=== PATIENT | female | born 1950 | race Caucasian/White ===

== ENCOUNTER 2019-09-21 05:56 | Observation (INO) | payer MEDICARE ==
[2019-09-21] MEDS ORDERED: solu-MEDROL 125 MG IV ONE (06:16)
--- NOTE | 2019-09-21 06:16 | ERPHSYRPT ---
- History of Present Illness Source: patient Exam Limitations: clinical condition Timing/Duration: day(s) (3) Activities at Onset: none Severity of Dyspnea-Max: severe Severity of Dyspnea-Current: severe Possible Cause: frequent episodes Associated Symptoms: cough, wheezing, weakness Hx Influenza Vaccination/Date Given: Yes (2013) Hx Pneumococcal Vaccination/Date Given: No <ALF GARCIA - Last Filed: 09/21/19 06:26> <HUGO SIMPSON - Last Filed: 09/21/19 07:49> - History of Present Illness Time Seen by Provider: 09/21/19 06:26 Physician History: 68 YO F with hx of COPD presents with increase cough and SOA x 3 days. Pt on 2L at night at home. Has been using home nebulizer w/o benefit. 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 Denies any fever chills or sweats.had to increase O2 to 3 liters this AM. (ALF GARCIA) Allergies/Adverse Reactions: No Known Drug Allergies Allergy (Unverified 09/21/19 05:59) Home Medications: Albuterol 8 gm Mdi Hfa [Ventolin Hfa MDI] 8 gm IH Q4H PRN PRN 01/19/15 [ History] Benazepril HCl [Lotensin] 20 mg PO DAILY 01/19/15 [History] - Review of Systems Constitutional: No Fever, No Chills Eyes: No Symptoms Ears, Nose, & Throat: No Symptoms Respiratory: Cough, Dyspnea, Dyspnea on Exertion (RILEY), Wheezing Cardiac: No Chest Pain, No Edema, No Syncope Abdominal/Gastrointestinal: No Abdominal Pain, No Nausea, No Vomiting, No Diarrhea Genitourinary Symptoms: No Dysuria Musculoskeletal: No Back Pain, No Neck Pain Skin: No Rash Neurological: No Dizziness, No Focal Weakness, No Sensory Changes Psychological: No Symptoms Endocrine: No Symptoms All Other Systems: Reviewed and Negative <ALF GARCIA - Last Filed: 09/21/19 06:26> - Past Medical History Pertinent Past Medical History: Yes Neurological History: No Pertinent History ENT History: Macular Degeneration Cardiac History: No Pertinent History Respiratory History: COPD Endocrine Medical History: No Pertinent History Musculoskeletal History: Arthritis, Rheumatoid Arthritis GI Medical History: Other History: No Pertinent History Psycho-Social History: Anxiety Female Reproductive Disorders: No Pertinent History Other Medical History: Salmonella - Past Surgical History Past Surgical History: Yes Neuro Surgical History: No Pertinent History Cardiac: No Pertinent History Respiratory: No Pertinent History Gastrointestinal: No Pertinent History Genitourinary: No Pertinent History Musculoskeletal: No Pertinent History Female Surgical History: Section, Other Other Surgical History: Breast biopsy years ago. - Social History Smoking Status: Current every day smoker How long have you smoked: 20 years Exposure to second hand smoke: Yes Drug Use: none <SPENSERALF PORTILLO Mckenzie Filed: 09/21/19 06:26> - Physical Exam General Appearance: no apparent distress, moderate distress, alert Eye Exam: PERRL/EOMI Neck Exam: normal inspection, supple Respiratory Exam: respiratory distress, rhonchi, wheezing Cardiovascular/Chest Exam: normal heart sounds, regular rate/rhythm Abdominal/Gastrointestinal Exam: soft, No tenderness, No distention, No mass Extremity Exam: non-tender, normal range of motion, normal inspection, no calf tenderness, no pedal edema Peripheral Pulses Exam: carotid (R): 2+, carotid (L): 2+ Neurologic Exam: alert, oriented x 3, cooperative, communications scientist II-XII nml as tested, sensation nml, No motor deficits Skin Exam: normal color, warm, No dry SpO2 Interpretation: normal SpO2: 97 O2 Delivery: Nasal Cannula (3 L) <SEPNSERBANDARALF Mckenzie Filed: 09/21/19 06:26> - Nursing Vital Signs Nursing Vital Signs: Initial Vital Signs Temperature 97.9 F 09/21/19 05:57 Pulse Rate 114 H 09/21/19 05:57 Respiratory Rate 30 H 09/21/19 05:57 Blood Pressure 172/99 09/21/19 05:57 O2 Sat by Pulse Oximetry 99 09/21/19 05:57 Pain Scale Pain Intensity 0 - Course Nursing assessment & vital signs reviewed: Yes EKG Interpreted by Me: RATE (113), Sinus Tach, NORMAL AXIS, NORMAL INTERVALS, Non-specific ST Changes <FORESTALF Mckenzie Filed: 09/21/19 06:26> Ordered Tests: Active Orders 24 hr Category Date Time Status EKG-ER Only STAT Care 09/21/19 06:16 Active Oxygen-ED Only Nasal Cannula 3 lpm Care 09/21/19 06:16 Active CHEST 1 VIEW (PORTABLE) Stat Exams 09/21/19 06:17 Ordered BLOOD CULTURE Stat Lab 09/21/19 Ordered BLOOD CULTURE Stat Lab 09/21/19 06:17 Ordered CBC W DIFF Stat Lab 09/21/19 06:16 Ordered CMP Stat Lab 09/21/19 06:16 Ordered D-DIMER QUANTITATIVE Stat Lab 09/21/19 06:16 Ordered Ferritin Stat Lab 09/21/19 Ordered LDH-LACTATE DEHYDROGENASE Stat Lab 09/21/19 06:16 Ordered Lactic Acid Stat Lab 09/21/19 06:30 Completed MAGNESIUM Stat Lab 09/21/19 06:16 Ordered NT PRO BNP Stat Lab 09/21/19 06:16 Ordered PROTIME WITH INR Stat Lab 09/21/19 06:16 Ordered TROPONIN Q3H Lab 09/21/19 06:30 Ordered TROPONIN Q3H Lab 09/21/19 09:30 Ordered TROPONIN Q3H Lab 09/21/19 12:30 Ordered TROPONIN Q3H Lab 09/21/19 15:30 Ordered TROPONIN Q3H Lab 09/21/19 18:30 Ordered Medication Summary Generic Name Dose Route Start Last Admin Trade Name Freq PRN Reason Stop Dose Admin Sodium Chloride 1,000 mls @ 100 mls/hr 09/21/19 06:30 09/21/19 06:33 Sodium Chloride 0.9% 1000 Ml IV 10/21/19 06:29 100 mls/hr .Q10H CAMRYN Administration Discontinued Medications Generic Name Dose Route Start Last Admin Trade Name Freq PRN Reason Stop Dose Admin Albuterol Sulfate 8 gm 09/21/19 06:30 Ventolin Hfa Mdi IH 10/21/19 06:29 Q4H CAMRYN Albuterol Sulfate 4 puff 09/21/19 06:38 09/21/19 06:38 Ventolin Common Canister IH 09/21/19 06:39 4 puff STAT ONE Administration Methylprednisolone Sodium Succinate 125 mg 09/21/19 06:16 Solu-Medrol 125 Mg IV 09/21/19 06:17 STAT ONE Lab/Rad Data: Laboratory Results 09/21/19 Range/Units 06:30 Lactic Acid 1.0 (0.4-2.0) - Progress Blood Culture(s) Obtained: Yes <ALF GARCIA - Last Filed: 09/21/19 06:26> - Progress Progress: re-examined Air Movement: good Antibiotics given: Yes Discussed with : Other (Dr. Donna Vuong) Will see patient in: hospital (observation) Counseled pt/family regarding: lab results, diagnosis, need for follow-up, rad results <HUGO SIMPSON - Last Filed: 09/21/19 07:49> - Progress Progress Note: 09/21/19 06:54 pt was turned over from Dr. Garcia at change of shift this am as a PUI for Covid after discussion of pending studies and current findings re-exam, and introduction. 09/21/19 07:[address] Vuong and pt and all agree best to place pt in Covid unit with obs and begin ab as well as lovenox DVT dosing due also to elevated D- Dimer and forego CT PE scan at this time but just proceed to Tx. (HUGO SIMPSON) <ALF GARCIA - Last Filed: 09/21/19 06:26> - Departure Departure Disposition: Observation Critical Care Time: No <HUGO SIMPSON - Last Filed: 09/21/19 07:49> - Departure Clinical Impression: PUI for suspect Covid, COPD exacerbation and bilateral Pneumoni Condition: Good Referrals: ROBERT FERNANDES [Primary Care Provider] -
[2019-09-21] MEDS ORDERED: Ventolin Hfa MDI IH SCH (06:30)
[2019-09-21] MEDS: Sodium Chloride 0.9% 1000 ML 1,000 ML IV SCH ×2 (06:33→20:23)
[2019-09-21] MEDS ORDERED: VENTOLIN COMMON CANISTER IH ONE (06:38)
[2019-09-21 07:22] LABS: Hematocrit 48.7 % (35-47); Hemoglobin 15.8 gm/dl (12.0-16.0); INR 1.03 (0.8-3.0); Mean Cell Volume 97.8 fl (78-100); Mean Corpuscular Hemoglobin 31.7 pg (26-32); Mean Corpuscular Hgb Concent. 32.4 g/dl (32-36); Mean Platelet Volume 10.1 fl (7.5-11.0); PROTIME 11.6 SECONDS (9.95-12.35); Platelet Count 262 K/mm3 (150-450); Red Blood Count 4.98 M/mm3 (4.1-5.4); Red Cell Distribution Width 12.8 % (11.5-14.0); White Blood Count 12.6 K/mm3 (4.0-10.5)
[2019-09-21 07:47] LABS: Eosinophil 8 % (0.00-3.0); Lymphocytes 5 % (24-44); Monocyte 2 % (0.0-12.0); Neutrophils 85 % (36.0-66.0); Platelet Estimate NORMAL (NORMAL); Total Cells Counted 100
[2019-09-21 08:01] LABS: ALBUMIN 4.7 g/dL (3.5-5.0); ALKALINE PHOSPHATASE 108 U/L (38-126); ANION GAP 15.1 MEQ/L (5-15); BLOOD UREA NITROGEN 13 mg/dL (7-17); CHLORIDE 105 mmol/L (98-107); Calcium 10.1 mg/dL (8.4-10.2); Carbon Dioxide 24 mmol/L (22-30); Creatinine 1 0.56 mg/dL (0.52-1.04); Ferritin 435 ng/mL (11.1-264); Glucose 127 mg/dL (74-106); LDH-LACTATE DEHYDROGENASE 203 U/L (120-246); MAGNESIUM 2.2 mg/dL (1.6-2.3); NT PRO BNP 26.1 pg/mL (0-900); Potassium 4.4 mmol/L (3.5-5.1); SGOT/AST 30 U/L (14-36); SGPT/ALT 20 U/L (0-35); SODIUM 140 mmol/L (137-145); Total Protein 8.7 g/dL (6.3-8.2)
--- NOTE | 2019-09-21 08:06 | XRAY ---
Indication: Cough and short of breath. Suspect COVID 19. Comparison: October 02, 2017. Portable chest now demonstrates subtle lingula infiltrate/atelectasis. Remaining heart and lungs unremarkable. Bony thorax intact again with mild osteopenia and degenerative changes.
[2019-09-21 08:07] LABS: INFLUENZA A NEGATIVE (NEGATIVE); INFLUENZA B NEGATIVE (NEGATIVE); RESPIRATORY SYNCTIAL VIRUS NEGATIVE (Negative)
[2019-09-21] MEDS ORDERED: HUMULIN R SQ PRN ×2 (10:00)
[2019-09-21] MEDS ORDERED: Combivent Inhaler COMMON CANISTER IH SCH (10:00)
[2019-09-21] MEDS ORDERED: MORPHINE SULFATE 4 MG INJ IV PRN (10:00)
[2019-09-21] MEDS ORDERED: Zofran 4 MG/2 ML VIAL IV PRN (10:00)
[2019-09-21] MEDS ORDERED: TYLENOL 325 MG PO PRN (10:00)
[2019-09-21] MEDS: ENOXAPARIN SODIUM SQ SCH ×2 (11:17→21:19)
[2019-09-21] MEDS: Zithromax 500 MG/ 250 ML NaCl Premix 500 MG/250 ML IVPB IV SCH (11:18)
[2019-09-21] MEDS: ROCEPHIN 1 Gm-D5w 50 ml Bag** 1 G/50 ML IVPB IV SCH (11:18)
[2019-09-21] MEDS: PROTONIX 40 MG IV IV SCH (11:19)
[2019-09-21] MEDS: Pepcid 20 MG VIAL IV SCH ×2 (11:19→21:20)
[2019-09-21] MEDS: VENTOLIN COMMON CANISTER IH SCH ×3 (11:55→19:30)
[2019-09-21] MEDS: Lotensin 10 MG PO SCH (14:06)
[2019-09-21] MEDS: Tessalon Perles 100 MG PO SCH ×2 (14:06→21:21)
[2019-09-21] MEDS: ZOCOR 20MG PO SCH (14:06)
[2019-09-21] MEDS: Singulair 10 MG PO SCH (14:07)
[2019-09-21] MEDS ORDERED: Ativan 1 MG PO PRN (20:53)
[2019-09-22] MEDS: Sodium Chloride 0.9% 1000 ML 1,000 ML IV SCH ×3 (05:24→16:29)
[2019-09-22 05:59] LABS: Absolute Neutrophil Ct (ANC) 8.55 (1.4-6.9); BASOPHIL % 0.3 % (0.0-0.4); Basophil (Absolute #) 0.03 (0-0.4); Eosinophil % 0.2 % (0.00-5.0); Eosinophil (Absolute #) 0.02 (0-0.5); Hematocrit 42.2 % (35-47); Hemoglobin 13.5 gm/dl (12.0-16.0); Lymphocyte (Absolute #) 1.49 (1.0-4.6); Lymphocytes % 13.3 % (24.0-44.0); Mean Cell Volume 98.1 fl (78-100); Mean Corpuscular Hemoglobin 31.4 pg (26-32); Mean Platelet Volume 8.7 fl (7.5-11.0); Monocyte (Absolute #) 1.15 (0.0-1.3); Monocytes % 10.2 % (0.0-12.0); Platelet Count 376 K/mm3 (150-450); Red Cell Distribution Width 12.4 % (11.5-14.0); White Blood Count 11.2 K/mm3 (4.0-10.5)
[2019-09-22 06:04] LABS: ALBUMIN 3.8 g/dL (3.5-5.0); ALKALINE PHOSPHATASE 84 U/L (38-126); ANION GAP 11.7 MEQ/L (5-15); BLOOD UREA NITROGEN 11 mg/dL (7-17); CHLORIDE 110 mmol/L (98-107); Calcium 9.5 mg/dL (8.4-10.2); Carbon Dioxide 24 mmol/L (22-30); Creatinine 1 0.54 mg/dL (0.52-1.04); Glucose 97 mg/dL (74-106); SGOT/AST 25 U/L (14-36); SGPT/ALT 16 U/L (0-35); SODIUM 142 mmol/L (137-145); Total Protein 7.2 g/dL (6.3-8.2)
[2019-09-22] MEDS: VENTOLIN COMMON CANISTER IH SCH ×4 (07:50→19:38)
[2019-09-22] MEDS: ROCEPHIN 1 Gm-D5w 50 ml Bag** 1 G/50 ML IVPB IV SCH (09:41)
[2019-09-22] MEDS: Zithromax 500 MG/ 250 ML NaCl Premix 500 MG/250 ML IVPB IV SCH (09:41)
[2019-09-22] MEDS: PROTONIX 40 MG IV IV SCH (09:41)
[2019-09-22] MEDS: ENOXAPARIN SODIUM SQ SCH ×2 (09:41→21:54)
[2019-09-22] MEDS: Lotensin 10 MG PO SCH (09:41)
[2019-09-22] MEDS: Singulair 10 MG PO SCH (09:42)
[2019-09-22] MEDS: Tessalon Perles 100 MG PO SCH ×3 (09:42→21:55)
[2019-09-22] MEDS: ZOCOR 20MG PO SCH (09:42)
[2019-09-22] MEDS: Pepcid 20 MG VIAL IV SCH ×2 (09:42→21:55)
[2019-09-22] MEDS ORDERED: NON-FORMULARY ITEM (Benazepril Hcl [Lotensin] 20 MG) PO SCH (10:00)
[2019-09-22] MEDS ORDERED: NON-FORMULARY ITEM (Pravastatin Sodium [Pravastatin Sodium] 20 MG) PO SCH (10:00)
[2019-09-22] MEDS ORDERED: Ventolin Hfa MDI IH ONE (16:28)
[2019-09-22] MEDS ORDERED: CEPACOL SORE THROAT LOZENGE PO PRN (16:38)
[2019-09-22] MEDS: Ativan 0.5 MG PO SCH (21:55)
[2019-09-23] MEDS: VENTOLIN COMMON CANISTER IH SCH ×3 (07:20→19:30)
[2019-09-23] MEDS: Singulair 10 MG PO SCH (10:38)
[2019-09-23] MEDS: Pepcid 20 MG VIAL IV SCH ×2 (10:38→21:35)
[2019-09-23] MEDS: Tessalon Perles 100 MG PO SCH ×3 (10:38→21:35)
[2019-09-23] MEDS: Zithromax 500 MG/ 250 ML NaCl Premix 500 MG/250 ML IVPB IV SCH (10:38)
[2019-09-23] MEDS: ROCEPHIN 1 Gm-D5w 50 ml Bag** 1 G/50 ML IVPB IV SCH (10:38)
[2019-09-23] MEDS: Lotensin 10 MG PO SCH (10:38)
[2019-09-23] MEDS: ZOCOR 20MG PO SCH (10:39)
[2019-09-23] MEDS: ENOXAPARIN SODIUM SQ SCH ×2 (10:39→21:35)
[2019-09-23] MEDS: PROTONIX 40 MG IV IV SCH (10:39)
[2019-09-23] MEDS: Sodium Chloride 0.9% 1000 ML 1,000 ML IV SCH (16:06)
[2019-09-23] MEDS: Ativan 0.5 MG PO SCH (21:35)
[2019-09-24] MEDS: VENTOLIN COMMON CANISTER IH SCH ×3 (06:35→14:37)
[2019-09-24] MEDS: ROCEPHIN 1 Gm-D5w 50 ml Bag** 1 G/50 ML IVPB IV SCH (09:29)
[2019-09-24] MEDS: ZOCOR 20MG PO SCH (09:31)
[2019-09-24] MEDS: Tessalon Perles 100 MG PO SCH ×2 (09:32→15:23)
[2019-09-24] MEDS: Singulair 10 MG PO SCH (09:32)
[2019-09-24] MEDS: Lotensin 10 MG PO SCH (09:33)
[2019-09-24] MEDS: Pepcid 20 MG VIAL IV SCH (09:33)
[2019-09-24] MEDS: PROTONIX 40 MG IV IV SCH (09:35)
[2019-09-24] MEDS: ENOXAPARIN SODIUM SQ SCH (09:39)
[2019-09-24] MEDS: Zithromax 500 MG/ 250 ML NaCl Premix 500 MG/250 ML IVPB IV SCH (09:41)
[2019-09-24 12:19] VITALS: O2SAT 96
[2019-09-24 16:55] VITALS: BP 156/68; PULSE 83
--- NOTE | 2019-09-24 16:58 | PCM.DS ---
Discharge Summary Date of Admission: 09/21/19 09:40 Admitting Physician: RIVAS HUI Primary Care Provider: ROBERT FERNANDES Allergies Allergies No Known Drug Allergies Allergy (Unverified 09/21/19 05:59) Hospital Summary - Hospital Course Hospital Course: Pt is 68 yo female pt of mine from [facility] with PMHx COPD, asthma, and HTN who was admitted through ER with SOB and pneumonia, PUI for COVID-19. CXR showed LLL/ lingular infiltrate; she was started on IV rocephin and zithromax. Her breathing improved when she got to ER. D-dimer was elevated over 700 and, I think due to concerns about COVID, the CT of the chest wasn't done, she was just treated with lovenox 70mg SQ BID. Yesterday pt was feeling much better. COVID test returned neg. She was transferred to the non-COVID med surg floor. Today she is still feeling better , on 2L O2 per [place]. Coughed up quite a bit of mucous yesterday. Would like to go home tonight. Will do CT chest with contrast to r/o PE; if negative will go home on home meds , plus augmentin x 6d (to finish 10d total antibiotics). - Vitals & Intake/Output Vital Signs: Vital Signs Temperature 98.1 F 09/24/19 13:00 Pulse Rate 77 09/24/19 14:51 Respiratory Rate 18 09/24/19 14:51 Blood Pressure 146/67 09/24/19 13:00 O2 Sat by Pulse Oximetry 96 09/24/19 14:51 Intake & Output: Intake & Output 09/22/19 09/23/19 09/24/19 09/25/19 11:59 11:59 11:59 11:59 Intake Total 2964 2128 2573 Output Total 2300 3300 1500 Balance 664 -1172 1073 Weight 73.7 kg 74.5 kg 74.8 kg - Lab Result Diagrams: 09/22/19 05:25 09/22/19 05:25 Micro Results-Entire Visit: Microbiology 09/21/19 06:45 Blood Culture - Preliminary Blood NO GROWTH TO DATE 09/21/19 06:30 Blood Culture - Preliminary Blood NO GROWTH TO DATE - Radiology Exams Ordered Rad Exams-Entire Visit: Radiology Procedures Category Date Time Status CHEST WITH CONTRAST [CT] Urgent Exams 09/24/19 16:51 Ordered - Procedures and Test Procedures and Tests throughout Hospitalization: Therapy Orders & Screens 09/21/19 07:05 Respiratory Therapy Assessment DAILY Comment: 09/21/19 10:00 Oxygen Nasal Cannula 3 lpm Comment: Respiratory Therapy Consult ROUTINE Comment: Reason For Exam: 09/21/19 11:13 Smoking Cessation Education ONCE Comment: Diagnosis: copd exac/ veronique pna Smoking Status: Current every day smoker How long have you smoked: 20 years Have you smoked in the past 12 months: Yes Approximately how many cigarettes per day: 3 Do you dip or chew tobacco: No If,Former Smoker,when did you quit: 06/29/2019 09/23/19 09:13 RT Miscellaneous Order ROUTINE Comment: Physician Instructions: Reason For Exam: PLEASE WEAN OFF OXYGEN, PT ONLY WEARS 2L AT HS Diagnosis: copd exac/ veronique pna Discharge Exam General Appearance: no apparent distress, alert Neurologic Exam: oriented x 3, cooperative Eye Exam: eyes nml inspection Ears, Nose, Throat Exam: moist mucous membranes Respiratory Exam: lungs clear, diminished breath sounds (air exchange fair), wheezing (faint occasional), No crackles/rales, No rhonchi Cardiovascular Exam: regular rate/rhythm, normal heart sounds, No murmur Back Exam: normal inspection, No rash Extremity Exam: normal inspection Skin Exam: normal color, warm, dry, No rash Final Diagnosis/Problem List - Final Discharge Diagnosis/Problem (1) Pneumonia Current Visit: Yes Status: Acute Assessment & Plan: Day #4 rocephin and zithromax today, IV. Code(s): J18.9 - PNEUMONIA, UNSPECIFIED ORGANISM (2) COPD exacerbation Current Visit: Yes Status: Acute Code(s): J44.1 - CHRONIC OBSTRUCTIVE PULMONARY DISEASE W (ACUTE) EXACERBATION (3) Elevated d-dimer Current Visit: Yes Status: Acute Assessment & Plan: Has been on therapeutic lovenox; will check CT chest, if neg send pt home. If pos will want her to go home on po blood thinner. Code(s): R79.89 - OTHER SPECIFIED ABNORMAL FINDINGS OF BLOOD CHEMISTRY (4) Heart murmur Current Visit: Yes Status: Suspected Assessment & Plan: heard by Dr. Hui; I don't appreciate it today, will re-eval at her f/u appt. Code(s): R01.1 - CARDIAC MURMUR, UNSPECIFIED - Discharge Disposition: Home, Self-Care Condition: Good Prescriptions: New Amoxicillin/Potassium Clav [Augmentin 875-125 Tablet] 875 mg PO BID #12 tablet Continue Albuterol 8 gm Mdi Hfa [Ventolin Hfa MDI] 8 gm IH Q4H PRN PRN PRN Reason: Shortness Of Breath Benazepril HCl [Lotensin] 20 mg PO DAILY Benzonatate 100 mg PO TID Montelukast Sodium 10 mg [Singulair 10 MG] 10 mg PO DAILY Pravastatin Sodium 20 mg PO DAILY Follow up with: ROBERT FERNANDES [Primary Care Provider] - 1 Week
--- NOTE | 2019-09-25 08:35 | XRAY ---
Indication: Short of breath. COPD. Elevated d-dimer. Multiple contiguous axial images obtained through the chest using 80 cc Isovue 370 contrast and PE protocol. Comparison: None There is good opacification of the pulmonary arteries including lobar and segmental branches. No filling defect or pulmonary embolus. Heart is not enlarged. Aorta is minimally arteriosclerotic without aneurysm/dissection. Tiny mediastinal and right hilar calcified nodes. No pathologic mediastinal/hilar lymphadenopathy. Lungs demonstrate bilateral mid to lower lung subsegmental atelectasis/scarring and small posterior medial right lower lobe calcified granuloma. No suspicious pulmonary mass, infiltrate, or effusion. Bony thorax intact with mild/moderate degenerative changes throughout the thoracolumbar spine.. Limited upper abdomen demonstrates a few splenic calcified granulomas. Impression: 1. Negative pulmonary embolus. No acute cardiopulmonary abnormalities. 2. Scattered subsegmental atelectasis/scarring and evidence for old granulomatous disease.
--- NOTE | 2019-11-13 12:42 | HP ---
DISCHARGE DIAGNOSES: 1) RESPIRATORY TRACT INFECTION. 2) EXACERBATION OF CHRONIC OBSTRUCTIVE PULMONARY DISEASE. 3) CORONAVIRUS RESULTS PENDING. CHIEF COMPLAINT: Shortness of breath, cough. HISTORY OF PRESENT ILLNESS: The patient is a 68 year old white female who had been in the emergency room with increasing of and cough. She has known history of chronic obstructive pulmonary disease, hypertension and hyperlipidemia. She denied any high fever or chills. Just increased exhaustion and cough. MEDICATIONS: Albuterol every four hours PRN, lotensin 20 q.d., benzonatate 100 b.i.d., Singulair 1 puff q.d., Pravastatin 20 q.d. ALLERGIES: NKDA. REVIEW OF SYSTEMS: HEENT: No problems hearing or seeing. CHEST: Short of breath on any exertion. History of asthma. Ex-smoker. CVS: The patient denies heart attacks. ABDOMEN: No nausea or vomiting. Decreased appetite. EXTREMITIES: Arthritis of the knees. LAB DATA AND TESTS: EKG showed sinus tachycardia, slight ST changes laterally nonacute. Troponins were negative. Chest x-ray showed bibasilar scarring, old granulomatous disease. White count was normal. HOSPITAL COURSE: The patient improved steadily on her IV fluids, oxygen. She was discharged on amoxicillin 875/125 one b.i.d. for six days. Follow up with Dr. Fong. PROGNOSIS: Good.
== END 2019-09-24 20:05 | disposition home or self-care (01) ==
LOC: ED 05:56 → MED SURG 09:40
PROVIDERS: ADMIT Family Medicine; ATTEND Family Medicine
DX: J18.9 Pneumonia, unspecified organism (principal); J44.1 Chronic obstructive pulmonary disease with (acute) exacerbation; I10 Essential (primary) hypertension; R79.89 Other specified abnormal findings of blood chemistry; R01.1 Cardiac murmur, unspecified; Z79.899 Other long term (current) drug therapy
CPT/HCPCS: 36000; 36415; 71045; 71260; 80048; 80053; 82728; 83605; 83615; 83735; 83880; 84484; 85025; 85379; 85610; 86140; 87040; 87631; 93005; 93268; 94640; 94762; 96360; 96361; 99285; G0378; U0003; J0456; J0696; J1650; A9270-GY